=== PATIENT | female | born 2005 | race Caucasian/White ===

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

== ENCOUNTER 2023-07-04 13:39 | Outpatient (CLI) | payer OTHER ==
[~2023-07-04 13:39] MED LIST: VIENVA-28 TABL1 EACH
== END 2023-07-04 13:52 | disposition home or self-care (01) ==
LOC: RAD 13:39
DX: M99.01 Segmental and somatic dysfunction of cervical region (principal); M99.02 Segmental and somatic dysfunction of thoracic region; M99.03 Segmental and somatic dysfunction of lumbar region; M99.04 Segmental and somatic dysfunction of sacral region; M99.05 Segmental and somatic dysfunction of pelvic region

== ENCOUNTER 2024-04-12 12:17 | Emergency (ER) | payer OTHER ==
[~2024-04-12] VITALS: Ht 157.5 cm; Wt 61.2 kg
[2024-04-12] MEDS ORDERED: KETOROLAC TROMETHAMINE 30 MG VIAL IV ONE (14:00)
[2024-04-12 15:04] LABS: URINE APPEARANCE Cloudy; URINE BILIRRUBIN Negative (NEGATIVE); URINE BLOOD Large; URINE COLOR Orange; URINE GLUCOSE Negative (NEGATIVE); URINE KETONE Negative (NEGATIVE); URINE LEUKOCYTE Small; URINE NITRATE Negative; URINE UROBILINOGEN 0.2 E.U./dl
[2024-04-12 15:08] LABS: URINE BACTERIA 4321.7 uL (0.0-1933); URINE EPITHELIAL CELLS 63.9 uL (0.0-38.8); URINE RBC 11.6 uL (0.0-20.8); URINE WBC 178.7 uL (0.0-23.2)
[2024-04-12 15:29] LABS: URINE CAST 1.03 uL (0.0-1.40); URINE PROTEIN 100 (NEGATIVE)
[2024-04-12 15:46] LABS: HEMATOCRIT 35.5 % (36.0-45.00); HEMOGLOBIN 11.4 g/dL (12.0-15.00); MEAN CELL VOLUME 72.4 fL (80.00-100.00); MEAN CORPUSCULAR HEMOGLOBIN 23.2 pg (27.00-32.0); PLATELET COUNT 426 K/uL (150-450); RED BLOOD COUNT 4.91 M/uL (4.00-6.00); RED CELL DISTRIBUTION WIDTH 15.8 % (11.5-14.5)
[2024-04-12] MEDS ORDERED: MACRODANTIN100 MG PO (17:47)
== END 2024-04-12 18:00 | disposition home or self-care (01) ==
LOC: ER 12:19
PROVIDERS: Emergency Medicine
DX: N39.0 Urinary tract infection, site not specified (principal)

== ENCOUNTER 2024-10-25 10:07 | Outpatient (CLI) | payer OTHER ==
[~2024-10-25 10:07] MED LIST changes: +MACRODANTIN100 MG PO
== END 2024-10-25 10:11 | disposition home or self-care (01) ==
LOC: SONOGRAMA 10:07
DX: R10.84 Generalized abdominal pain (principal)

== ENCOUNTER 2025-03-09 14:15 | Outpatient (CLI) | payer OTHER | END 2025-03-09 14:24 | disposition home or self-care (01) | LOC: RAD 14:15 | DX: M99.01 Segmental and somatic dysfunction of cervical region (principal); M99.02 Segmental and somatic dysfunction of thoracic region; M99.03 Segmental and somatic dysfunction of lumbar region ==